=== PATIENT | female | born 1995 | race Caucasian/White ===

== ENCOUNTER 2016-06-12 00:13 | Outpatient (CLI) | payer OTHER ==
[~2016-06-12 00:13] MED LIST: COLACE 100MG C100 MG PO
== END 2016-06-12 10:35 | disposition home or self-care (01) ==
LOC: GENOP 00:13
DX: O47.1 False labor at or after 37 completed weeks of gestation (principal); Z3A.37 37 weeks gestation of pregnancy
CPT/HCPCS: 81001; G0463

== ENCOUNTER 2021-09-02 03:54 | Emergency (ER) | payer OTHER ==
[2021-09-02 04:37] LABS: HEMOGLOBIN 12.9 gm/dl (12.3-15.3); RED BLOOD COUNT 4.41 M/UL (4.00-5.10); WHITE BLOOD COUNT 7.7 K/UL (4.5-11.0)
[2021-09-02 04:58] LABS: BUN/CREATININE RATIO 15 (0-10)
[2021-09-02] MEDS ORDERED: PROTONIX 40 MG40 M1 PO (08:53)
== END 2021-09-02 10:10 | disposition home or self-care (01) ==
LOC: ER1 03:54
PROVIDERS: Nurse Practitioner
DX: R10.13 Epigastric pain (principal); R10.12 Left upper quadrant pain; I48.91 Unspecified atrial fibrillation
CPT/HCPCS: 71045; 80053; 80076; 81001; 82150; 82550; 82553; 83605; 83690; 84484; 84703; 85025; 85379; 93005; 99284